=== PATIENT | female | born 2000 | race Caucasian/White ===

== ENCOUNTER → 2023-05-13 14:21 | Outpatient (CLI) | payer BC, SELFPAY ==
--- NOTE | ~2023-05-13 | US_ITS ---
EXAMINATION: US pelvic complete w TV DATE: 05/13/2023 14:46 INDICATION: Pelvic pain. Comparison:No prior studies for comparison. TECHNIQUE: Multiple transabdominal and endovaginal sonographic images of the pelvis performed. FINDINGS: The uterus measures 6 x 5 x 4.4 cm. The endometrial complex measures 5 mm. The right ovary measures 3.5 x 1.7 x 2 cm and the left ovary measures 3.7 x 1.9 x 1.9 cm. There are small follicles in each ovary. Normal doppler signal in both ovaries. There is free fluid in the pelvis. There are no abnormal masses seen on either side. IMPRESSION: 1. Unremarkable pelvic ultrasound Reviewed, dictated and finalized at location B.
== END ==
PROVIDERS: PCP Physician Assistant Medical; Visit Provider Physician Assistant Medical
DX: R10.2 Pelvic and perineal pain (principal)
CPT/HCPCS: 76830; 76856